=== PATIENT | male | born 1990 | race Hispanic/Latino ===

== ENCOUNTER 2017-11-12 18:07 | Emergency (ER) | payer BC, SELFPAY ==
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
== END 2017-11-12 19:45 | disposition home or self-care (01) ==
LOC: ERS 18:07
DX: M54.2 Cervicalgia (principal); V43.52XA Car driver injured in collision with other type car in traffic accident, initial encounter
CPT/HCPCS: 70450; 72125

== ENCOUNTER 2018-06-19 16:01 | Outpatient (CLI) | payer OTHER ==
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
== END 2018-06-19 16:02 | disposition home or self-care (01) ==
LOC: MRI 16:01
PROVIDERS: ATTEND Internal Medicine
DX: R29.898 Other symptoms and signs involving the musculoskeletal system (principal); R90.89 Other abnormal findings on diagnostic imaging of central nervous system
CPT/HCPCS: 70551

== ENCOUNTER 2019-03-19 15:03 | Emergency (ER) | payer OTHER ==
[2019-03-19] MEDS ORDERED: Acetaminophen 500 MG TAB ONE (15:17)
[2019-03-19] MEDS ORDERED: Metoclopramide HCl 10 MG/2 ML VIAL ONE (15:17)
--- NOTE | 2019-03-19 16:10 | CT ---
CT BRAIN WITHOUT CONTRAST: HISTORY: Headache, vision FINDINGS: No evidence of acute hemorrhage, midline shift or abnormal extra-axial fluid collections is seen. The ventricular size is appropriate and the basilar cisterns are patent. The bony calvarium is intact. The visualized paranasal sinuses and mastoid air cells are well aerated. There is a focal area of decreased attenuation in the left posterior lateral cerebellum corresponding to the signal abnormality on the MRI of 06/19/2018 and is better seen on the current CT scan compared to that of 11/12/2017. IMPRESSION: No CT evidence of acute intracranial hemorrhage.. Recommendation: Further evaluation of the left cerebellar findings with MRI (with and without IV cont rast) is recommended.
== END 2019-03-19 16:45 | disposition home or self-care (01) ==
LOC: SCSER 15:03
DX: G43.909 Migraine, unspecified, not intractable, without status migrainosus (principal)
CPT/HCPCS: 70450; 96365; J2765

== ENCOUNTER 2019-11-12 13:39 | Inpatient (IN) | payer OTHER ==
[2019-11-12 14:41] LABS: Hemoglobin 15.8 g/dL (14.0-18.0); Mean Corpuscular HGB CONC 31.9 g/dL (32.0-36.0); Mean Corpuscular Hemoglobin 29.8 pg (27.0-31.0); Mean Corpuscular Volume 93.5 fL (78.0-98.0); Mean Platelet Volume 7.8 fL (7.4-10.4); Platelet Count 175 thou/uL (130-400); RBC Distribution Width 11.6 % (11.5-14.5); Red Blood Cell (RBC) Count 5.31 mill/uL (4.70-6.10)
[2019-11-12 14:58] LABS: ALT (SGPT) 68 U/L (8-55); AST (SGOT) 77 U/L (5-34); Albumin 4.2 g/dL (3.5-5.0); Alkaline Phosphatase 68 U/L (40-110); Anion Gap 12 mmol/L (10-20); BUN (Urea Nitrogen) 14 mg/dL (8.9-20.6); Bilirubin, Total 0.5 mg/dL (0.2-1.2); Calc. Creatinine Clearance 0 mL/min (70-130); Calcium 9.1 mg/dL (7.8-10.44); Carbon Dioxide 26 mmol/L (22-29); Chloride 105 mmol/L (98-107); Estimated GFR-MDRD 77; Globulin 3.7 g/dL (2.4-3.5); Glucose 102 mg/dL (70-105); Potassium 4.7 mmol/L (3.5-5.1); Protein, Total 7.9 g/dL (6.0-8.3); Sodium 138 mmol/L (136-145)
[2019-11-12 15:04] LABS: Band 11 % (5-11); Lymphocytes 27 % (21-51); MDiff Complete? YES; Monocytes 5 % (0-10); Neutrophil 54 % (42-75); Platelet Morphology Comment Appears Adequate; RBC Morphology Normal; Reactive Lymphocytes 3 % (0-10)
[2019-11-12] MEDS ORDERED: Ondansetron PF 4 MG/2 ML Vial ONE ×2 (15:26→17:03)
[2019-11-12] MEDS ORDERED: Acetaminophen 500 MG TAB ONE (15:26)
[2019-11-12] MEDS ORDERED: Ondansetron ODT 4 MG TAB ONE (15:33)
[2019-11-12] MEDS ORDERED: Ketorolac Tromethamine 30 MG/ML VIAL ONE (17:03)
--- NOTE | 2019-11-12 17:15 | RAD ---
PORTABLE CHEST: 11/12/19 HISTORY: Fatigue. COVID positive. There are hazy ground glass opacities in the right mid and lower lung concerning for COVID infiltrate s. No definite infiltrate on the left. IMPRESSION: Ground glass infiltrates in the right lung. POS: [facility]
[2019-11-12] MEDS ORDERED: Ondansetron PF 4 MG/2 ML Vial IVP PRN (19:08)
[2019-11-12] MEDS ORDERED: Calcium Carbonate 500 MG ChewTAB PO PRN (19:08)
[2019-11-12] MEDS ORDERED: Ondansetron ODT 4 MG TAB PO PRN (19:08)
[2019-11-12] MEDS ORDERED: Senokot S 8.6-50 MG TAB PO PRN (19:08)
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
[2019-11-12 20:34] VITALS: BMI 25.6
[2019-11-12] MEDS ORDERED: Ibuprofen 800 MG TAB PO PRN (23:34)
[2019-11-12] MEDS ORDERED: diphenhydrAMINE 50 MG CAP PO PRN (23:34)
[2019-11-13] MEDS: Acetaminophen 325 MG TAB PO PRN ×2 (00:20→08:16)
[2019-11-13 04:51] LABS: #Lymphocytes 1.1 thou/uL (1.20-3.40); #Monocytes 0.2 thou/uL (0.11-0.59); #Neutrophils 2.9 thou/uL (1.40-6.50); %Basophils 0.5 % (0.0-1.0); %Eosinophils 0.6 % (0.0-10.0); %Lymphocytes 25.2 % (21.0-51.0); %Monocytes 4.9 % (0.0-10.0); %Neutrophils 68.8 % (42.0-75.0); Hemoglobin 14.3 g/dL (14.0-18.0); Mean Corpuscular HGB CONC 32.2 g/dL (32.0-36.0); Mean Corpuscular Hemoglobin 30.3 pg (27.0-31.0); Mean Platelet Volume 7.6 fL (7.4-10.4); Platelet Count 188 thou/uL (130-400); RBC Distribution Width 11.7 % (11.5-14.5); Red Blood Cell (RBC) Count 4.71 mill/uL (4.70-6.10); White Blood Cell (WBC) Count 4.3 thou/uL (4.8-10.8)
[2019-11-13 05:13] LABS: ALT (SGPT) 60 U/L (8-55); AST (SGOT) 63 U/L (5-34); Albumin 3.6 g/dL (3.5-5.0); Alkaline Phosphatase 56 U/L (40-110); Anion Gap 12 mmol/L (10-20); BUN (Urea Nitrogen) 18 mg/dL (8.9-20.6); Bilirubin, Total 0.3 mg/dL (0.2-1.2); Calc. Creatinine Clearance 100 mL/min (70-130); Calcium 8.3 mg/dL (7.8-10.44); Carbon Dioxide 26 mmol/L (22-29); Chloride 105 mmol/L (98-107); Estimated GFR-MDRD 75; Globulin 3.1 g/dL (2.4-3.5); Glucose 95 mg/dL (70-105); Potassium 4.2 mmol/L (3.5-5.1); Protein, Total 6.7 g/dL (6.0-8.3); Sodium 139 mmol/L (136-145)
--- NOTE | 2019-11-13 08:09 | PDOC.FM ---
- Subjective Subjective: Seen this morning at bedside. Pt complains of continued headache and cough. Denies SOB or chest pain. No acute events over night - Objective MAR Reviewed: Yes Vital Signs & Weight: Vital Signs (12 hours) Temp Pulse Resp BP Pulse Ox 11/13/19 04:17 99.8 F H 84 16 99/62 94 L 11/13/19 00:20 99.5 F 81 21 H 100/67 93 L 11/12/19 20:33 97.3 F L 71 18 115/59 L 93 L 11/12/19 20:23 93 L Weight Weight 74.253 kg I&O: 11/12/19 11/13/19 11/14/19 06:59 06:59 06:59 Intake Total 663 Balance 663 Result Diagrams: 11/13/19 04:25 11/13/19 04:25 Radiology Reviewed by me: Yes Phys Exam - Physical Examination Constitutional: NAD HEENT: PERRLA, moist MMs Neck: no nodes Respiratory: clear to auscultation bilateral Cardiovascular: RRR, no significant murmur Gastrointestinal: soft, non-tender, no distention Musculoskeletal: no edema Neurological: moves all 4 limbs Psychiatric: normal affect, A&O x 3 Skin: no rash, normal turgor Dx/Plan (1) COVID-19 Code(s): U07.1 - COVID-19 Status: Acute (2) Pneumonia Code(s): J18.9 - PNEUMONIA, UNSPECIFIED ORGANISM Status: Acute - Plan Plan: 1. PNA secondary to SARS-CoV-2 - respiratory statues remains stable and pt continues to require no supplemental O2 - Continue symptomatic treatment - Pending test result timing, If pt continues to maintain his O2 sats on RA, may consider dc home today with strict isolation precautions at home and return instructions for worsening respiratory status. Dispo: pt is in stable condition, would expect dc within 24 hours Addendum - Attending - Attending Attestation Date/Time: 11/13/19 [id number] I personally evaluated the patient and discussed the management with Dr. Meier. I agree with the History, Examination, Assessment and Plan documented above with any addition or exceptions noted below.
[2019-11-13 08:24] VITALS: BP 112/62
[2019-11-13] MEDS ORDERED: Enoxaparin Sodium 40 MG/0.4 ML SYRINGE SC SCH (09:00)
[2019-11-13] MEDS ORDERED: Benzonatate 100 MG CAP PO PRN (09:54)
[2019-11-13 10:21] VITALS: TEMP 99.1
--- NOTE | 2019-11-17 05:51 | PQF ---
TRUNG BLAIR JASON MD * r* [id number] CLINICAL DOCUMENTATION CLARIFICATION FORM: POST DISCHARGE Addendum to original discharge summary date: ____ Late entry note date: __ DATE: 11/17/2019 ATTN: Veto Hartman Please exercise your independent, professional judgment in responding to the clarification form. Clinical indicators are provided on the bottom of this form for your review Please check appropriate box(es): [ ] Sepsis [ ] SIRS due to non-infectious process (please specify etiology) [ ] without organ dysfunction [ ] Septic Shock [ ] Localized infection without sepsis [ X ] Other diagnosis _COVID19 infection with its anticipated vital sign abnormalities [ ] Unable to determine In addition, please specify: Present on Admission (POA): [ X ] Yes [ ] No [ ] Unable to determine For continuity of documentation, please document condition throughout progress notes and discharge summary. Thank You. CLINICAL INDICATORS - SIGNS / SYMPTOMS / LABS 11/11 "report fever and chill" PN 11/12 "PNA secondary to SARS-Cov2" Vital signs Temp: 11/12=99.8,100.4 Vital signs Pulse: 11/12=89 Vital signs Respi: 11/12=21 Vital signs BP: 11/1196=158/59 Labs WBC: 11/11=4.0 11/12=4.3 Labs Lactate: 11/11=0.9 Collected 11/11 "Blood culture:no growth" RISK FACTORS Covid19 infection-PN 11/12 PNA-PN 11/12 TREATMENTS: Chest Xray-Collected 11/11 Oxygen via NC-HP 11/11 Isolation-PN 11/12 Blood culture-Collected 11/11 (This form is maintained as a part of the permanent medical record) 2014 [email or web address] All Rights Reserved [email or web address] [phone] TAYLOR
--- NOTE | 2019-11-18 19:45 | DIS ---
DATE OF ADMISSION: 11/12/2019 DATE OF DISCHARGE: 11/13/2019 ADMITTING ATTENDING: Epifanio Cabrera MD. DISCHARGE ATTENDING: Veto Candelaria MD. RESIDENT: Erik Meier D.O. PROCEDURES: None. CONSULTS: None. ADMITTING DIAGNOSIS: COVID-19 pneumonia. DISCHARGE DIAGNOSIS: COVID-19 pneumonia. SECONDARY DIAGNOSIS: None. DISCHARGE MEDICATIONS: 1. Tessalon Perles 100 mg p.o. t.i.d. p.r.n. cough. 2. Tylenol 650 mg p.o. q.4h p.r.n. fever. HOSPITAL COURSE: This is a 29-year-old male who presented to the emergency room with complaint of worsening headaches and body aches after having been diagnosed with COVID-19 at an outpatient urgent care. Upon admission, there was no documented hypoxia in the ER. However, he did apparently drop into the 80s at times per ER doc. Over the course of the period of observation, patient never required oxygen and oxygen saturation was always within normal limits. On day of discharge the patient was on room air, said that he was feeling better than he had the day before, however, was still generally feeling sick. He was able to tolerate p.o. without problem. His symptoms were controlled with Tylenol. The patient was discharged home with continued symptomatic care. He was also given instructions for isolation precautions until 10 days post initial diagnosis and 72 hours of being asymptomatic. The patient was given strict return precautions regarding worsening cough, shortness of breath. DISCHARGE INSTRUCTIONS: Location: Home. Diet: Regular. Follow up: With PCP within one week. Job ID: [id number] [facility]
== END 2019-11-13 10:55 | disposition home or self-care (01) | DRG 177 ==
LOC: ERS 13:39 → 2SW 19:01
PROVIDERS: ADMIT Emergency Medicine; ATTEND Emergency Medicine
PROC: 8E0ZXY6 Isolation (ICD-10-PCS; principal; 2019-11-13)
DX: U07.1 COVID-19 (principal); J12.89 Other viral pneumonia; R09.02 Hypoxemia
CPT/HCPCS: 36415; 71045; 80053; 82728; 83605; 83615; 84145; 84484; 85025; 85379; 87040; 96361; 96374; 96375; J1885; J2405; Q0162

== ENCOUNTER 2022-01-22 22:02 | Inpatient (IN) | payer BC, OTHER, SELFPAY ==
[2022-01-22] MEDS ORDERED: Morphine 4 MG/ML VIAL ONE ×2 (22:22→22:58)
[2022-01-22] MEDS ORDERED: Ketorolac Tromethamine 30 MG/ML VIAL ONE (22:22)
[2022-01-22 23:12] LABS: #Lymphocytes 1.8 thou/uL (1.20-3.40); #Monocytes 0.5 thou/uL (0.11-0.59); #Neutrophils 8.7 thou/uL (1.40-6.50); %Basophils 0.3 % (0.0-1.0); %Eosinophils 0.4 % (0.0-10.0); %Monocytes 4.9 % (0.0-10.0); %Neutrophils 78.4 % (42.0-75.0); Hemoglobin 14.9 g/dL (14.0-18.0); Mean Corpuscular HGB CONC 33.8 g/dL (32.0-36.0); Mean Corpuscular Hemoglobin 32.2 pg (27.0-31.0); Mean Corpuscular Volume 95.4 fL (78.0-98.0); Mean Platelet Volume 7.5 fL (7.4-10.4); Platelet Count 261 thou/uL (130-400); RBC Distribution Width 11.7 % (11.5-14.5); Red Blood Cell (RBC) Count 4.63 mill/uL (4.70-6.10); White Blood Cell (WBC) Count 11.1 thou/uL (4.8-10.8)
[2022-01-22] MEDS ORDERED: Morphine 2 MG/ML VIAL SLOW IVP PRN (23:12)
[2022-01-22] MEDS ORDERED: Promethazine HCl 25 MG/ML VIAL IM PRN (23:12)
[2022-01-22] MEDS ORDERED: Ondansetron PF 4 MG/2 ML Vial IVP PRN (23:12)
[2022-01-22] MEDS ORDERED: Cyclobenzaprine 10 MG TAB PO PRN (23:14)
[2022-01-22] MEDS ORDERED: Ibuprofen 600 MG TAB PO PRN (23:14)
[2022-01-22] MEDS ORDERED: traMADol HCl 50 MG TAB PO PRN (23:14)
[2022-01-22 23:36] LABS: ALT (SGPT) 73 U/L (8-55); AST (SGOT) 35 U/L (5-34); Albumin 4.4 g/dL (3.5-5.0); Alkaline Phosphatase 82 U/L (40-110); Anion Gap 13 mmol/L (10-20); BUN (Urea Nitrogen) 18 mg/dL (8.9-20.6); Bilirubin, Total 0.4 mg/dL (0.2-1.2); Calc. Creatinine Clearance 0 mL/min (70-130); Carbon Dioxide 25 mmol/L (22-29); Chloride 103 mmol/L (98-107); Estimated GFR 79; Globulin 3.1 g/dL (2.4-3.5); Glucose 124 mg/dL (70-105); Protein, Total 7.5 g/dL (6.0-8.3); Sodium 137 mmol/L (136-145)
[2022-01-23 01:10] VITALS: BMI 28.0
[2022-01-23] MEDS: Sodium Chloride 0.9% 1,000 ML IV SCH ×3 (01:14→17:01)
[2022-01-23] MEDS: traMADol HCl 50 MG TAB PO SCH ×4 (01:14→18:24)
[2022-01-23] MEDS: Acetaminophen 500 MG TAB PO SCH ×2 (01:15→05:46)
[2022-01-23 02:26] LABS: SARS-CoV-2 NAA Rapid Test Not Detected (NotDetected)
[2022-01-23] MEDS: Acetaminophen 325 MG TAB PO SCH ×3 (05:56→18:23)
[2022-01-23] MEDS ORDERED: CEFAZOLIN 2 GM in Sodium Chloride 0.9% 100 ML IVPB SCH ×2 (07:30→22:00)
[2022-01-23] MEDS ORDERED: Senokot S 8.6-50 MG TAB PO SCH (09:00)
[2022-01-23] MEDS ORDERED: Famotidine 20 MG TAB PO SCH (09:00)
[2022-01-23] MEDS ORDERED: Polyethylene Glycol 3350 17 GM Packet PO SCH (09:00)
[2022-01-23] MEDS ORDERED: Morphine 4 MG/ML VIAL SLOW IVP PRN (09:54)
[2022-01-23] MEDS ORDERED: Morphine 4 MG/ML VIAL SLOW IVP SCH (10:00)
[2022-01-23] MEDS ORDERED: HYDROmorphone 2 MG/ML VIAL ONE (11:23)
[2022-01-23] MEDS ORDERED: Propofol 500 MG/50 ML VIAL ONE (11:23)
[2022-01-23] MEDS ORDERED: Midazolam HCl 2 mg/2 ml Vial ONE (12:10)
[2022-01-23] MEDS ORDERED: Fentanyl 100 MCG/2 ML VIAL ONE (12:10)
[2022-01-23] MEDS ORDERED: Sodium Chloride 0.9% 100 ML ONE (12:39)
[2022-01-23] MEDS ORDERED: CEFAZOLIN 2 GM VIAL ONE (12:39)
[2022-01-23] MEDS ORDERED: Promethazine HCl 25 MG/ML VIAL IM PRN (12:45)
[2022-01-23] MEDS ORDERED: traMADol HCl 50 MG TAB PO PRN ×2 (12:45)
[2022-01-23] MEDS ORDERED: Zolpidem Tartrate 5 MG TAB PO PRN (12:45)
[2022-01-23] MEDS ORDERED: Ropivacaine 0.2% 550 ML 550 ML NERVE BLCK SCH (12:45)
[2022-01-23] MEDS ORDERED: Ondansetron PF 4 MG/2 ML Vial IVP PRN (12:45)
[2022-01-23] MEDS ORDERED: HYDROcodone/Acetaminophen 5/325 mg Tablet PO PRN ×2 (12:45)
[2022-01-23] MEDS ORDERED: Ketorolac Tromethamine 30 MG/ML VIAL IVP PRN ×2 (12:45→14:06)
[2022-01-23] MEDS ORDERED: fentaNYL Citrate/PF 100 MCG/2 ML SYRINGE ONE (12:49)
[2022-01-23] MEDS ORDERED: Dexamethasone 20 MG/5 ML VIAL ONE (12:52)
[2022-01-23] MEDS ORDERED: Bupivacaine HCl 0.5%/Epinephrine 1:200,000/PF 30 ml Vial ONE (12:52)
[2022-01-23] MEDS ORDERED: PROPOFOL 200 MG/20 ML VIAL ONE (12:52)
[2022-01-23] MEDS ORDERED: Ondansetron PF 4 MG/2 ML Vial ONE (12:52)
[2022-01-23] MEDS ORDERED: Lidocaine 1% PF 5 ML VIAL ONE (12:52)
[2022-01-23] MEDS ORDERED: Phenylephrine 10 MG/ML VIAL ONE (12:52)
[2022-01-23] MEDS ORDERED: HYDROmorphone 2 MG/ML VIAL SLOW IVP PRN (14:06)
[2022-01-23] MEDS ORDERED: Meperidine HCl/PF 25 MG/ML VIAL SLOW IVP PRN (14:06)
[2022-01-23] MEDS ORDERED: Promethazine HCl 25 MG/ML VIAL IVPB PRN (14:06)
[2022-01-23 20:21] VITALS: BP 118/68; TEMP 98.2
== END 2022-01-23 20:15 | disposition home or self-care (01) | DRG 505 ==
LOC: ERS 22:02 → T4-A 23:09 → OBSVTOIN 23:11
PROVIDERS: ADMIT Physician Assistant Medical; ATTEND Surgery
PROC: 0SSK04Z Reposition Right Tarsometatarsal Joint with Internal Fixation Device, Open Approach (ICD-10-PCS; principal; 2022-01-23)
DX: S93.324A Dislocation of tarsometatarsal joint of right foot, initial encounter (principal); W18.30XA Fall on same level, unspecified, initial encounter; Z20.822 Contact with and (suspected) exposure to COVID-19; Y93.67 Activity, basketball
CPT/HCPCS: 29515; 36415; 76000; 80053; 85025; 93005; 96374; 96375; A4306; C1713; J0690; J1100; J1170; J1885; J2250; J2270; J2370; J2405; J2704; J2795; J3010; J3490; J7050; U0002